=== PATIENT | male | born 1995 | race American Indian/Alaskan Native ===

== ENCOUNTER 2019-03-09 17:33 | Emergency (ER) | payer SELFPAY ==
[2019-03-09 17:58] VITALS: BP 147/96
[2019-03-09] MEDS ORDERED: ZOFRAN ODT PO ONE (19:56)
[2019-03-09] MEDS ORDERED: TORADOL IM ONE (19:56)
[2019-03-09] MEDS ORDERED: FIORICET PO ONE (19:57)
--- NOTE | 2019-03-09 21:20 | Cat Scan Report ---
PROCEDURE: CT HEAD/BRAIN WO CON TECHNIQUE: Computerized tomography of the head was performed without contrast material. CT DOSE LENGTH PRODUCT: 805.4 mGycm HISTORY: HEADACHE COMPARISONS: None . FINDINGS: Skull and scalp: Normal . Paranasal sinuses: Normal . Ventricles and subarachnoid spaces: Normal . Cerebrum: No evidence of hemorrhage, acute infarction or mass . Cerebellum and brainstem: No evidence of hemorrhage, acute infarction or mass . Vasculature: Normal . Other: None . ASPECTS: 10 IMPRESSION: No acute intracranial abnormality. This document is electronically signed by Tati Gardner MD., March 09 2019 10:18:43 PM ET
--- NOTE | 2019-03-09 21:34 | Emergency Department Report ---
ED General Adult HPI - General Chief complaint: Headache Stated complaint: HEADACHES/PAIN Time Seen by Provider: 03/09/19 19:30 Source: patient Mode of arrival: Ambulatory Limitations: No Limitations - History of Present Illness Initial comments: Patient is a 23-year-old -[place] male with no past medical history who presents to the ED with acute onset persistent severe left temporal headache for the last 2 weeks. The patient states that he has been taking [id number] medications with no relief. Patient also complains of nausea but denies vomiting, change in vision, dizziness, chest pain, shortness of breath, palpitation, fever, chills, nasal and sinus congestion, sore throat, traumatic injury, neck pain or change in speech or hearing loss. MD Complaint: headache -: Sudden, week(s) (2) Location: head Radiation: non-radiation Severity scale (0 -10): 8 Quality: aching, sharp, constant Consistency: constant Improves with: none Worsens with: none Associated Symptoms: headaches, nausea/vomiting. denies: confusion, chest pain, cough, diaphoresis, fever/chills, loss of appetite, malaise, seizure, shortness of breath, syncope, weakness Treatments Prior to Arrival: NSAID - Related Data Previous Rx's Medication Instructions Recorded Last Taken Type Butalb/Acetamin/Caff 50-325-40 1 - 2 tab PO Q4H PRN 3 Days #15 03/09/19 Unknown Rx [Fioricet 50-325-40] tablet Ketorolac [Toradol] 10 mg PO Q8H PRN #20 tablet 03/09/19 Unknown Rx Promethazine [Phenergan] 25 mg PO Q6HR PRN #24 tab 03/09/19 Unknown Rx Allergies Allergy/AdvReac Type Severity Reaction Status Date / Time No Known Allergies Allergy Unverified 03/09/19 17:39 ED Review of Systems ROS: Stated complaint: HEADACHES/PAIN Other details as noted in HPI Comment: All other systems reviewed and negative Constitutional: no symptoms reported, see HPI. denies: diaphoresis, fever, malaise Eyes: as per HPI. denies: eye pain, eye discharge ENT: as per HPI. denies: ear pain, throat pain, dental pain, hearing loss, epistaxis Respiratory: no symptoms reported, see HPI. denies: cough, orthopnea, shortness of breath, SOB with exertion, SOB at rest Cardiovascular: as per HPI. denies: chest pain, palpitations, dyspnea on exertion, edema, syncope, paroxysmal nocturnal dyspnea Endocrine: no symptoms reported, see HPI. denies: excessive sweating, intolerance to cold, intolerance to heat, increased hunger, increased urine, unexplained weight gain, unexplained weight loss Gastrointestinal: as per HPI, nausea. denies: abdominal pain, vomiting, diarrhea, constipation, hematochezia Genitourinary: as per HPI. denies: urgency, dysuria, frequency, hematuria, discharge, testicular pain, testicular mass Musculoskeletal: as per HPI. denies: back pain, joint swelling, arthralgia Skin: as per HPI. denies: rash, lesions, change in color, change in hair/nails Neurological: as per HPI, headache. denies: weakness, numbness, paresthesias, confusion, abnormal gait, vertigo Psychiatric: as per HPI. denies: anxiety Hematological/Lymphatic: as per HPI ED Past Medical Hx - Past Medical History Previous Medical History?: No - Surgical History Past Surgical History?: No - Social History Smoking Status: Never Smoker Substance Use Type: None - Medications Home Medications: Home Medications Medication Instructions Recorded Confirmed Last Taken Type Butalb/Acetamin/Caff 50-325-40 1 - 2 tab PO Q4H PRN 3 Days #15 03/09/19 Unknown Rx [Fioricet 50-325-40] tablet Ketorolac [Toradol] 10 mg PO Q8H PRN #20 tablet 03/09/19 Unknown Rx Promethazine [Phenergan] 25 mg PO Q6HR PRN #24 tab 03/09/19 Unknown Rx ED Physical Exam - General Limitations: No Limitations General appearance: alert, in no apparent distress - Head Head exam: Present: atraumatic, normocephalic, normal inspection - Eye Eye exam: Present: normal appearance, PERRL, EOMI - ENT ENT exam: Present: normal exam, normal orophraynx, mucous membranes moist, TM's normal bilaterally, normal external ear exam - Neck Neck exam: Present: normal inspection, full ROM - Respiratory Respiratory exam: Present: normal lung sounds bilaterally. Absent: respiratory distress, wheezes, rales, stridor, chest wall tenderness, decreased breath sounds, prolonged expiratory - Cardiovascular Cardiovascular Exam: Present: regular rate, normal rhythm, normal heart sounds. Absent: bradycardia, tachycardia, systolic murmur, diastolic murmur - GI/Abdominal GI/Abdominal exam: Present: soft, normal bowel sounds. Absent: distended, guarding, hyperactive bowel sounds, hypoactive bowel sounds, organomegaly - Rectal Rectal exam: Present: deferred - Extremities Exam Extremities exam: Present: normal inspection, full ROM, normal capillary refill - Back Exam Back exam: Present: normal inspection, full ROM. Absent: muscle spasm, paraspinal tenderness - Neurological Exam Neurological exam: Present: alert, oriented X3, CN II-XII intact, normal gait, reflexes normal - Psychiatric Psychiatric exam: Present: normal affect - Skin Skin exam: Present: warm, dry, intact, normal color ED Course Vital Signs 03/09/19 03/09/19 03/09/19 17:56 20:15 20:29 Temperature 98.2 F Pulse Rate 95 H Respiratory 16 16 16 Rate Blood Pressure 147/96 O2 Sat by Pulse 100 Oximetry - Reevaluation(s) Reevaluation #1: 03/09/19 21:33 Patient is alert and oriented 3 and disposition and distress. Patient was treated for pain in the ED and head CT scan also ordered. On reevaluation, patient's headache is controlled with medications, and the head CT scan without contrast shows no acute intracranial abnormalities and normal sinus aeration. Patient was discharged home on medications and advised to follow-up with his primary care physician in 3-5 days for reevaluation or return to the ED immediately if symptoms get worse. ED Medical Decision Making - Radiology Data Radiology results: report reviewed, image reviewed No acute intracranial hemorrhage or abnormality - Medical Decision Making Patient is alert and oriented 3 and disposition and distress. Patient was treated for pain in the ED and head CT scan also ordered. On reevaluation, patient's headache is controlled with medications, and the head CT scan without contrast shows no acute intracranial abnormalities and normal sinus aeration. Patient was discharged home on medications and advised to follow-up with his primary care physician in 3-5 days for reevaluation or return to the ED immediately if symptoms get worse. - Differential Diagnosis migraine headache, tension type headache, cluster headache Critical care attestation.: If time is entered above; I have spent that time in minutes in the direct care of this critically ill patient, excluding procedure time. ED Disposition Clinical Impression: Migraine headache without aura Qualifiers: Status migrainosus presence: without status migrainosus Intractability: not intractable Qualified Code(s): G43.009 - Migraine without aura, not intractable, without status migrainosus Disposition: TO HOME OR SELFCARE Is pt being admited?: No Does the pt Need Aspirin: No Condition: Stable Instructions: Migraine Headache (ED), Cluster Headache (ED) Additional Instructions: Take medications with food, drink plenty of fluids and follow up with your Primary care physician in 3-5 days for reevaluation. Return to the ED immediately if symptoms get worse. Prescriptions: Butalb/Acetamin/Caff 50-325-40 [Fioricet 50-325-40] 1 - 2 tab PO Q4H PRN 3 Days #15 tablet PRN Reason: Headache Promethazine [Phenergan] 25 mg PO Q6HR PRN #24 tab PRN Reason: Nausea Ketorolac [Toradol] 10 mg PO Q8H PRN #20 tablet PRN Reason: Pain Referrals: ROSS ALVAREZ MD [Primary Care Provider] - 3-5 Days Time of Disposition: 21:36 Print Language: KAZAKH
== END 2019-03-09 21:53 | disposition home or self-care (01) ==
LOC: ED 17:33
DX: G43.009 Migraine without aura, not intractable, without status migrainosus (principal)
CPT/HCPCS: 70450; 96372; 99283; J1885; Q0162